=== PATIENT | male | born 1960 | race Caucasian/White ===

== ENCOUNTER 2018-07-03 12:54 | Emergency (ER) | payer BC, MEDICAID, SELFPAY ==
[~2018-07-03] VITALS: Ht 185.4 cm; Wt 128.0 kg
[2018-07-03 13:06] VITALS: BP 151/104
[2018-07-03] MEDS ORDERED: HYDR12.517 PO (13:28)
[2018-07-03] MEDS ORDERED: LISI-170 PO (13:28)
--- NOTE | 2018-07-03 13:50 | NUR ---
Patient/Caregiver given discharge instructions and they have confirmed that they understand the instructions. Patient ambulatory with crutches
== END 2018-07-03 13:52 | disposition home or self-care (01) ==
LOC: ED 13:46
DX: M25.562 Pain in left knee (principal); I10 Essential (primary) hypertension; F17.200 Nicotine dependence, unspecified, uncomplicated
CPT/HCPCS: 29505; 99283

== ENCOUNTER 2018-10-11 23:28 | Emergency (ER) | payer MEDICAID ==
[~2018-10-11] VITALS: Ht 182.9 cm; Wt 104.0 kg
[~2018-10-11 23:28] MED LIST: HYDR12.517 PO; LISI-170 PO
--- NOTE | 2018-10-11 23:38 | NUR ---
Pt BIB EMS from Shelter for SOB and CP. Pt states he has been feeling more tired x1 week, when pt got arrested this evening, had onset of SOB and CP, pressure across chest. Pt refused by alf, found to be 70%RA by EMS. Placed on 4L with sats to 75%, 98%on 15L NRBR. 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 BG 145. Pt in ST 110s, tachypnic at 26, 98% on 6L oxymask.
[2018-10-11] MEDS ORDERED: LOSA50TA14 PO (23:52)
[2018-10-11] MEDS ORDERED: HYDR25TA6 PO (23:52)
[2018-10-11] MEDS ORDERED: TADA5TAB2 PO (23:52)
[2018-10-11] MEDS ORDERED: TAMS-11 PO (23:52)
[2018-10-12] MEDS ORDERED: SODIUM CHLORIDE 0.9% 1,000ML IVBOLUS ONE
--- NOTE | 2018-10-12 00:07 | NUR ---
Report to Jesica OCAMPO
--- NOTE | 2018-10-12 00:08 | NUR ---
REPORT FROM [facility]UMED CARE OF PT, PT IN NAD AT THIS TIME, RESTING IN BED VSS
[2018-10-12 00:14] LABS: ALANINE AMINOTRANSFERASE 39 U/L (12-78); ALBUMIN 3.8 g/dL (3.4-5.0); ANION GAP 6 mmol/L (5-15); CALCIUM 9.5 mg/dL (8.5-10.1); CHLORIDE 107 mmol/L (98-107); CREATININE 1.57 mg/dL (0.7-1.3)
[2018-10-12 00:18] LABS: ALKALINE PHOSPHATASE 124 U/L (45-117); BILIRUBIN,TOTAL 0.5 mg/dL (0.2-1.0); TOTAL PROTEIN 7.9 g/dL (6.4-8.2); TROPONIN I < 0.015 ng/mL (0.000-0.045)
[2018-10-12 00:26] LABS: BASOPHILS # (AUTO) 0.03 x10^3/uL (0-0.1); BASOPHILS % (AUTO) 0 % (0-1); EOSINOPHILS # (AUTO) 0.09 x10^3/uL (0-0.4); EOSINOPHILS % (AUTO) 1 % (1-7); LYMPHOCYTES # (AUTO) 1.02 x10^3/uL (1-3.4); LYMPHOCYTES % (AUTO) 15 % (22-44); MD SCAN; MEAN CORPUSCULAR HEMOGLOBIN 30.9 pg (27.5-34.5); MEAN CORPUSCULAR VOLUME 91.1 fL (81-97); MEAN PLATELET VOLUME 7.2 fL (7.4-10.4); MONOCYTES # (AUTO) 0.51 x10^3/uL (0.2-0.8); MONOCYTES % (AUTO) 7 % (2-9); NEUTROPHILS # (AUTO) 5.19 x10^3/uL (1.8-6.8); NEUTROPHILS % (AUTO) 76 % (42-75); PLATELET COUNT 88 x10^3/uL (130-400); RED BLOOD COUNT 5.94 x10^6/uL (4.38-5.82); RED CELL DISTRIBUTION WIDTH 14.1 % (9.4-14.8)
--- NOTE | 2018-10-12 00:36 | NUR ---
TO CT AND BACK ON ALL MONITORS WITH RN IN NAD
--- NOTE | 2018-10-12 00:45 | NUR ---
pt taken off o2 and maintaining saturation
[2018-10-12 01:46] VITALS: BP 144/88
--- NOTE | 2018-10-12 01:46 | NUR ---
PT RESTING ON JULIO IN NAD
--- NOTE | 2018-10-12 02:01 | NUR ---
Patient/Caregiver given discharge instructions and they have confirmed that they understand the instructions. Patient ambulatory with steady gait.
== END 2018-10-12 02:02 | disposition home or self-care (01) ==
LOC: ED 10-12 00:01
DX: I71.2 Thoracic aortic aneurysm, without rupture (principal); K44.9 Diaphragmatic hernia without obstruction or gangrene; R07.89 Other chest pain; K74.60 Unspecified cirrhosis of liver; R16.1 Splenomegaly, not elsewhere classified; E86.0 Dehydration; F17.200 Nicotine dependence, unspecified, uncomplicated; I10 Essential (primary) hypertension; G40.909 Epilepsy, unspecified, not intractable, without status epilepticus
CPT/HCPCS: 36415; 71045; 71275; 80053; 83880; 84484; 85025; 96360; 96361; 99284; J7030

== ENCOUNTER 2018-10-12 03:25 | Emergency (ER) | payer MEDICAID ==
[~2018-10-12] VITALS: Ht 177.8 cm; Wt 104.0 kg
[~2018-10-12 03:25] MED LIST changes: +HYDR25TA6 PO; +LOSA50TA14 PO; +TADA5TAB2 PO; +TAMS-11 PO
[2018-10-12 03:30] VITALS: BP 154/100
--- NOTE | 2018-10-12 03:44 | NUR ---
PT ANANYA GARCIA ACCOMPANIED BY [employer] FOR MEDICAL CLEARANCE. PT SEEN AND D/C LAST NIGHT FROM HERE, BUT PAPERWORK NEEDED TO BE UPDATED PER ACCEPTING NURSE AT [facility].
--- NOTE | 2018-10-12 04:04 | NUR ---
PT D/C WITH D/C SUMMARY AND SCRIPTS IN CARE OF MASTER PRINTER. PAPERWORK FILLED OUT PER REQUEST OF [facility], AND DR LY CONFIRMED VIA TELEPHONE PT WOULD BE ACCEPTED BY JULIAN[facility] ZAMORA PRIOR TO D/C. PT AMBULATES TO REGISTRATION DESK WITH STEADY GAIT FOR D/C AND TRANSPORT TO [facility]. ALL QUESTIONS ANSWERED.
[2018-10-12] MEDS ORDERED: OMNIPAQUE 350 MG/ML, 100ML BOTTLE ONE (05:10)
== END 2018-10-12 04:11 | disposition home or self-care (01) ==
LOC: ED 03:34
DX: I10 Essential (primary) hypertension (principal)
CPT/HCPCS: 93005; 99283; Q9967

== ENCOUNTER 2019-05-03 10:05 | Outpatient (CLI) | payer MEDICAID | END 2019-05-03 23:59 | disposition home or self-care (01) | LOC: STAR 10:05 | PROVIDERS: ATTEND Orthopaedic Surgery | DX: Z02.9 Encounter for administrative examinations, unspecified (principal) ==

== ENCOUNTER 2020-01-30 08:44 | Emergency (ER) | payer MEDICAID ==
[~2020-01-30] VITALS: Ht 185.4 cm; Wt 103.1 kg
--- NOTE | 2020-01-30 08:48 | NUR ---
Called from lobby. Not in lobby.
[2020-01-30 10:14] LABS: BASOPHILS % (AUTO) 1 % (0-1); EOSINOPHILS % (AUTO) 2 % (1-7); LYMPHOCYTES % (AUTO) 31 % (22-44); MEAN CORPUSCULAR HEMOGLOBIN 29.9 pg (27.5-34.5); MONOCYTES % (AUTO) 9 % (2-9); NEUTROPHILS % (AUTO) 57 % (42-75); PLATELET COUNT 73 x10^3/uL (130-400); RED BLOOD COUNT 4.92 x10^6/uL (4.38-5.82); RED CELL DISTRIBUTION WIDTH 14.4 % (9.4-14.8)
[2020-01-30 10:23] LABS: ALBUMIN 2.8 g/dL (3.4-5.0); ANION GAP 3 mmol/L (5-15); CALCIUM 8.5 mg/dL (8.5-10.1); CHLORIDE 111 mmol/L (98-107)
[2020-01-30 10:28] LABS: CREATININE 1.47 mg/dL (0.7-1.3); TROPONIN I < 0.015 ng/mL (0.000-0.045)
[2020-01-30 10:57] LABS: MD SCAN
[2020-01-30 10:59] VITALS: BP 133/68
== END 2020-01-30 12:03 | disposition home or self-care (01) ==
LOC: ED 12:00
DX: J06.9 Acute upper respiratory infection, unspecified (principal); Z20.828 Contact with and (suspected) exposure to other viral communicable diseases; I44.4 Left anterior fascicular block; I45.10 Unspecified right bundle-branch block; I10 Essential (primary) hypertension; F17.290 Nicotine dependence, other tobacco product, uncomplicated; Z90.49 Acquired absence of other specified parts of digestive tract
CPT/HCPCS: 36415; 71045; 80048; 82040; 83880; 84484; 85025; 87635; 93005; 99285